=== PATIENT | male | born 1985 | race Caucasian/White ===

== ENCOUNTER 2023-06-16 20:28 | Emergency (ER) | payer OTHER, SELFPAY ==
[2023-06-16] VITALS (17 sets, daily range): BP systolic 145–170; BP diastolic 82–104; PULSE 84–93; RESP 16–20; TEMP 37.3; O2SAT 97–99; BMI 44.1
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
[2023-06-16 20:56] LABS: HCO3 VBG 26 mmol/L (21-28); PCO2 VBG 44 mmHG (40-50); PO2 VBG 30.5 mmHG (25-47); pH VBG 7.376 (7.32-7.43)
[2023-06-16 21:02] LABS: Basophils Absolute Auto 0.03 K/uL (0.00-0.30); Basophils Percent Auto 0.3 % (0.0-3.0); Eosinophils Absolute Auto 0.14 K/uL (0.00-0.50); Eosinophils Percent Auto 1.3 % (0.0-7.0); Hematocrit 45.3 % (37.0-53.0); Hemoglobin* 15.1 gm/dL (13.5-17.5); Immature Granulocytes Abs Auto 0.02 K/uL (0.00-0.30); Immature Granulocytes Pct Auto 0.2 %; Lymphocytes Percent Auto 8.8 % (20-44); Mean Corpuscular HGB Conc 33 gm/dL (32-36); Mean Corpuscular Hemoglobin 30 pg (26-34); Mean Corpuscular Volume 90 fL (80-100); Monocytes Percent Auto 6.7 % (0.0-11.0); Neutrophils Percent Auto 82.7 % (42.0-72.0); Platelet Count* 211 K/uL (140-440); RDW Coefficient of Variation % 12.1 % (11.5-15.5); Red Blood Count 5.05 m/uL (4.30-5.90); White Blood Count* 10.38 K/uL (4.50-11.00)
[2023-06-16 21:16] LABS: Albumin* 4.6 g/dL (3.3-5.0); Chloride* 104 mmol/L (96-114)
[2023-06-16 21:17] LABS: Potassium* 4.1 mmol/L (3.6-5.1); Sodium* 138 mmol/L (135-149)
[2023-06-16 21:19] LABS: Bilirubin Total* 0.5 mg/dL (0.1-1.5); Creatinine* 0.9 mg/dL (0.5-1.5); Est. Creatinine Clearance* 122.15; Estimated Glomerular Filt Rate 112 ml/min
[2023-06-16 21:20] LABS: Alanine Aminotransferase* 45 U/L (4-50); Alkaline Phosphatase* 112 U/L (40-150); Anion Gap 10 mEq/L (7-15); Aspartate Amino Transferase* 33 U/L (12-35); Blood Urea Nitrogen* 17 mg/dL (5-24); Calcium* 9.6 mg/dL (8.4-10.6); Carbon Dioxide* 24 mmol/L (20-32); Glucose* 109 mg/dL (60-115); Total Protein* 8.3 g/dL (6.0-8.3)
[2023-06-16 21:23] LABS: C Reactive Protein* 0.5 mg/dL (0.5-1.0)
[2023-06-16 21:24] LABS: PCR FLU A Negative PCR FLU A (Negative); PCR FLU B POSITIVE PCR FLU B (Negative); PCR RSV Negative PCR RSV (Negative); SARS PCR* Negative SARS-CoV-2 (Negative)
[2023-06-16 21:31] LABS: NT Pro B Type NatriureticPept* < 20 pg/mL
[2023-06-16 21:32] LABS: Troponin I* < 0.01 ng/mL (0.01-0.04)
[2023-06-16 22:01] LABS: Slide Review Reflex No
[2023-06-16] MEDS: ONDANSETRON ODT 4 MG TAB PO (22:30)
== END 2023-06-16 22:32 | disposition home or self-care (01) ==
PROVIDERS: Emergency Provider Family Medicine
DX: S30.1XXA Contusion of abdominal wall, initial encounter (principal); V89.2XXA Person injured in unspecified motor-vehicle accident, traffic, initial encounter; J10.1 Influenza due to other identified influenza virus with other respiratory manifestations
CPT/HCPCS: 36415; 71260; 74177; 76604; 76705; 80053; 82803; 83880; 84484; 85025; 86140; 87631; 93005; 93308; 94761; 99284; 99285; 99291; A9270; Q9967